=== PATIENT | male | born 2000 | race Caucasian/White ===

== ENCOUNTER 2018-07-10 04:50 | Emergency (ER) | payer SELFPAY ==
[2018-07-10 05:13] VITALS: BMI 19.3
[2018-07-10 05:20] LABS: BASO % 0.3 % (0-2.0); EOS % 0.2 % (0-4.5); HEMATOCRIT 42.5 % (35.4-49); HEMOGLOBIN 14.2 GM/dL (11.7-16.9); LYMPH % 16.6 % (8-40); MCH 31.6 pg (25.7-33.7); MCHC 33.3 g/dl (32.0-35.9); MEAN CELL VOLUME 94.7 fl (80-96); NEUT % 76.9 % (42.8-82.8); PLATELET COUNT 207 K/MM3 (134-434); RBC 4.49 M/mm3 (4.00-5.60); RDW 13.4 % (11.9-15.9); WHITE BLOOD COUNT 13.1 K/mm3 (4.0-10.0)
[2018-07-10] MEDS ORDERED: ONDANSETRON 4 MG/2 ML VIAL IVPUSH ONE (05:20)
[2018-07-10] MEDS ORDERED: morphine CARPU-JECT 4 MG/1 ML DISP.SYRIN IVPUSH ONE (05:20)
[2018-07-10] MEDS ORDERED: SODIUM CHLORIDE 1,000 ML IV STA ×2 (05:20→07:34)
[2018-07-10 05:45] VITALS: TEMP 97.6
[2018-07-10 05:49] LABS: ALBUMIN 4.6 g/dl (3.4-5.0); ALK PHOS 69 U/L (45-117); ANION GAP 13 MMOL/L (8-16); BILIRUBIN,TOTAL 0.6 mg/dL (0.2-1); BLOOD UREA NITROGEN 11 mg/dL (7-18); CALCIUM 8.8 mg/dL (8.5-10.1); CHLORIDE 108 mmol/L (98-107); CO2 22 mmol/L (21-32); GLUCOSE,RANDOM 112 mg/dL (74-106); POTASSIUM 3.9 mmol/L (3.5-5.1); SGOT/AST 12 U/L (15-37); SGPT/ALT 16 U/L (13-61); SODIUM 143 mmol/L (136-145); TOT PROT 7.2 g/dl (6.4-8.2)
--- NOTE | 2018-07-10 05:56 | PDOC ---
*Physical Exam - Vital Signs Last Vital Signs Temp Pulse Resp BP Pulse Ox 97.6 F 80 20 123/96 98 07/10/18 05:35 07/10/18 05:35 07/10/18 05:35 07/10/18 05:35 07/10/18 05:35 - Physical Exam Comments: 07/10/18 05:50 Afebrile, O2 sat normal, a milligram stable Initially arrived very tremulous in bed, complaining of severe pain. On my examination status post initial pain medications, more calm now with less tremors, still complaining of right flank pain Pupils are equal and reactive to light, extraocular movements are intact. Oropharynx clear, neck supple Lungs are clear, heart is regular Abdomen is soft and nondistended. Positive right CVA tenderness. No palpable hernias, exam is normal No evidence of toxidrome ED Treatment Course - LABORATORY CBC & Chemistry Diagram: 07/10/18 05:11 07/10/18 05:11 - ADDITIONAL ORDERS Additional order review: Laboratory Results 07/10/18 07/10/18 05:11 05:11 Sodium 143 Potassium 3.9 Chloride 108 H Carbon Dioxide 22 Anion Gap 13 BUN 11 Creatinine 1.0 Creat Clearance w eGFR > 60 Random Glucose 112 H Calcium 8.8 Total Bilirubin 0.6 AST 12 L ALT 16 Alkaline Phosphatase 69 Total Protein 7.2 Albumin 4.6 Lipase 82 - Medications Given in the ED: ED Medications Discontinued Medications Generic Name Dose Route Start Last Admin Trade Name Freq PRN Reason Stop Dose Admin Morphine Sulfate 4 mg 07/10/18 05:20 07/10/18 05:25 Morphine Injection - IVPUSH 07/10/18 05:21 4 mg ONCE ONE Administration Ondansetron HCl 4 mg 07/10/18 05:20 07/10/18 05:25 Zofran Injection IVPUSH 07/10/18 05:21 4 mg ONCE ONE Administration Medical Decision Making - Medical Decision Making 07/10/18 05:54 Healthy 17-year-old male presents with acute onset of right flank pain that awoke him from sleep, associated with dark urine. No history of kidney stones, no fevers or chills, no cardiopulmonary complaints. Labs, urinalysis CT of the abdomen and pelvis Pain and nausea control IV fluids Reassess,. ? tremors as response to pain v. reaction to marijuana. 07/10/18 06:53 3mm distal ureteral stone with mild hydro. awaiting UA, feels better after meds. expect d/c if no suspicion for superimposed infxn on UA. *DC/Admit/Observation/Transfer Diagnosis at time of Disposition: Right flank pain - Discharge Dispostion Condition at time of disposition: Fair - Referrals - Patient Instructions - Post Discharge Activity
--- NOTE | 2018-07-10 06:38 | PDOC ---
History of Present Illness - General Chief Complaint: Pain Stated Complaint: ABD PAIN Time Seen by Provider: 07/10/18 04:59 History Source: Patient Exam Limitations: No Limitations - History of Present Illness Initial Comments: 17 y/o M with no sig pmh presents with sudden onset of nonradiating R flank pain that started around 12 AM today along with noting dark urine. Denies ever having this type of pain before. +Nausea. Denies fever, sob, cp, vomiting, diarrhea, hematuria, dysuria, alcohol intake. Mentions only smoking marijuana, which he last smoked a few hours ago. Denies any abdominal surgeries. 07/10/18 06:24 Past History - Past Medical History Allergies/Adverse Reactions: Allergies Allergy/AdvReac Type Severity Reaction Status Date / Time No Known Allergies Allergy Verified 07/10/18 05:07 COPD: No Other medical history: Pt denies - Suicide/Smoking/Psychosocial Hx Smoking History: Never smoked Have you smoked in the past 12 months: No Information on smoking cessation initiated: No Hx Alcohol Use: No Drug/Substance Use Hx: Yes (Marijuana) Substance Use Type: None Abd/GI Specific PMHX - Complaint Specific PMHX Colitis: No Diverticulitis: No Gall Bladder Disease: No GERD: No Hepatitis: No Irritable Bowel Synd (IBS): No Pancreatitis: No GI Ulcer Disease: No Review of Systems - Review of Systems Comments:: See HPI 07/10/18 06:26 *Physical Exam - Vital Signs Last Vital Signs Temp Pulse Resp BP Pulse Ox 97.6 F 80 20 123/96 98 07/10/18 05:35 07/10/18 05:35 07/10/18 05:35 07/10/18 05:35 07/10/18 05:35 - Physical Exam General Appearance: Yes: Moderate Distress (Patient is shaking, unable to lay still) HEENT: positive: JOHN (Pupils slightly dilated) Respiratory/Chest: positive: Lungs Clear, Normal Breath Sounds. negative: Respiratory Distress, Accessory Muscle Use, Labored Respiration, Crackles, Rales , Rhonchi, Stridor, Wheezing Cardiovascular: positive: Regular Rhythm, Regular Rate Gastrointestinal/Abdominal: positive: Normal Bowel Sounds. negative: Protuberent, Distended, Guarding, Rebound, Tenderness, Mass Musculoskeletal: negative: CVA Tenderness Extremity: positive: Normal Inspection Neurologic: positive: Alert ED Treatment Course - LABORATORY CBC & Chemistry Diagram: 11/09/18 05:11 07/10/18 05:11 - ADDITIONAL ORDERS Additional order review: Laboratory Results 07/10/18 07/10/18 05:11 05:11 Sodium 143 Potassium 3.9 Chloride 108 H Carbon Dioxide 22 Anion Gap 13 BUN 11 Creatinine 1.0 Creat Clearance w eGFR > 60 Random Glucose 112 H Calcium 8.8 Total Bilirubin 0.6 AST 12 L ALT 16 Alkaline Phosphatase 69 Total Protein 7.2 Albumin 4.6 Lipase 82 07/10/18 05:11 RBC 4.49 MCV 94.7 MCHC 33.3 RDW 13.4 MPV 9.0 Neutrophils % 76.9 Lymphocytes % 16.6 Monocytes % 6.0 Eosinophils % 0.2 Basophils % 0.3 - RADIOLOGY Radiology Studies Ordered: Category Date Time Status ABDOMEN & PELVIS CT W/O CONTR [CT] Stat CT Scan 07/10/18 05:33 Ordered - Medications Given in the ED: ED Medications Discontinued Medications Generic Name Dose Route Start Last Admin Trade Name Freq PRN Reason Stop Dose Admin Sodium Chloride 1,000 mls @ 1,000 mls/hr 07/10/18 05:20 07/10/18 05:25 Normal Saline - IV 07/10/18 06:19 1,000 mls/hr ASDIR STA Administration Lorazepam 1 mg 07/10/18 05:55 07/10/18 06:12 Ativan Injection - IVPUSH 07/10/18 05:56 1 mg ONCE ONE Administration Morphine Sulfate 4 mg 07/10/18 05:20 07/10/18 05:25 Morphine Injection - IVPUSH 07/10/18 05:21 4 mg ONCE ONE Administration Ondansetron HCl 4 mg 07/10/18 05:20 07/10/18 05:25 Zofran Injection IVPUSH 07/10/18 05:21 4 mg ONCE ONE Administration Medical Decision Making - Medical Decision Making 17 y/o M otherwise healthy presents with sudden onset R flank pain. Symptoms could possibly be renal colic in nature? However, on PE, patient not really tender on exam, though appears uncomfortable and anxious on observation. Consider opiate withdrawal though patient mentions only using marijuana. Consider pancreatitis. Will give IVF, Zofran, Morphine, Ativan, get CBC, CMP, lipase, UA, urine tox and CT A/P 07/10/18 06:28 Abnormal Lab Results 07/10/18 07/10/18 05:11 05:11 WBC 13.1 H Absolute Neuts (auto) 10.1 H Chloride 108 H Random Glucose 112 H AST 12 L Labs showed mild leukocytosis of 13.1; rest of LFTs, lipase and kidney function normal CT A/P showed 3 mm distal R ureteral stone Patient given Toradol and now resting comfortably Patient pending UA Will sign out to AM MAYO 07/10/18 07:04 *DC/Admit/Observation/Transfer Diagnosis at time of Disposition: Urolithiasis - Referrals - Patient Instructions - Post Discharge Activity
[2018-07-10] MEDS ORDERED: KETOROLAC TROMETHAMINE 30 MG/1 ML VIAL IVPUSH ONE (06:41)
[2018-07-10] MEDS ORDERED: KETOROLAC TROMETHAMINE 30 MG/1 ML VIAL ONE ×2 (06:42→06:44)
[2018-07-10 08:55] LABS: URINE APPEARANCE SLCLOUDY; URINE BILIRUBIN NEGATIVE (<2.0 mg/dL); URINE COLOR YELLOW; URINE GLUCOSE (UA) NEGATIVE (NEGATIVE); URINE KETONE 1+ (NEGATIVE); URINE LEUK ESTERASE NEGATIVE (NEGATIVE); URINE NITRITE NEGATIVE (NEGATIVE); URINE PROTEIN 1+ (NEGATIVE); URINE UROBILINOGEN NEGATIVE mg/dL (0.2-1.0)
[2018-07-10 09:05] LABS: URINE MUCUS FEW
[2018-07-10 09:07] LABS: COCAINE, UR NEGATIVE ng/ml (CUTOFF=300); METHADONE, UR NEGATIVE ng/ml (CUTOFF=300); PHENCYCLIDINE,URINE NEGATIVE ng/ml (CUTOFF=25); URINE AMPHETAMINES NEGATIVE ng/ml (CUTOFF=500); URINE BARBITURATES NEGATIVE ng/ml (CUTOFF=200); URINE BENZODIAZEPINES NEGATIVE ng/ml (CUTOFF=200)
--- NOTE | 2018-07-10 09:08 | PDOC ---
*Physical Exam - Vital Signs Last Vital Signs Temp Pulse Resp BP Pulse Ox 97.6 F 80 20 123/96 98 07/10/18 05:35 07/10/18 05:35 07/10/18 05:35 07/10/18 05:35 07/10/18 05:35 - Physical Exam Comments: 07/10/18 09:06 This patient was signed out to me by Dr. Campbell at 7am 07/10/2018 ED Treatment Course - LABORATORY CBC & Chemistry Diagram: 07/10/18 05:11 07/10/18 05:11 - ADDITIONAL ORDERS Additional order review: Laboratory Results 07/10/18 07/10/18 07/10/18 08:41 05:11 05:11 Sodium 143 Potassium 3.9 Chloride 108 H Carbon Dioxide 22 Anion Gap 13 BUN 11 Creatinine 1.0 Creat Clearance w eGFR > 60 Random Glucose 112 H Calcium 8.8 Total Bilirubin 0.6 AST 12 L ALT 16 Alkaline Phosphatase 69 Total Protein 7.2 Albumin 4.6 Lipase 82 Urine Color Yellow Urine Appearance Slcloudy Urine pH 6.0 Ur Specific [place] 1.015 Urine Protein 1+ H Urine Glucose (UA) Negative Urine Ketones 1+ H Urine Blood 3+ H Urine Nitrite Negative Urine Bilirubin Negative Urine Urobilinogen Negative Ur Leukocyte Esterase Negative 07/10/18 05:11 RBC 4.49 MCV 94.7 MCHC 33.3 RDW 13.4 MPV 9.0 Neutrophils % 76.9 Lymphocytes % 16.6 Monocytes % 6.0 Eosinophils % 0.2 Basophils % 0.3 - Medications Given in the ED: ED Medications Discontinued Medications Generic Name Dose Route Start Last Admin Trade Name Sweetie PRN Reason Stop Dose Admin Sodium Chloride 1,000 mls @ 1,000 mls/hr 07/10/18 05:20 07/10/18 05:25 Normal Saline - IV 07/10/18 06:19 1,000 mls/hr ASDIR STA Administration Ketorolac Tromethamine 30 mg 07/10/18 06:41 07/10/18 07:01 Toradol Injection - IVPUSH 07/10/18 06:42 30 mg ONCE ONE Administration Lorazepam 1 mg 07/10/18 05:55 07/10/18 06:12 Ativan Injection - IVPUSH 07/10/18 05:56 1 mg ONCE ONE Administration Morphine Sulfate 4 mg 07/10/18 05:20 07/10/18 05:25 Morphine Injection - IVPUSH 07/10/18 05:21 4 mg ONCE ONE Administration Ondansetron HCl 4 mg 07/10/18 05:20 07/10/18 05:25 Zofran Injection IVPUSH 07/10/18 05:21 4 mg ONCE ONE Administration Medical Decision Making - Medical Decision Making 07/10/18 09:07 17 yo M with newly diagnosed right ureteral stone. This patient was signed out to me by Dr. Campbell. On two attempts, the patient would not give urine. Approximately at 8:45 am, he was able to give a urine sample. Currently sleeping in the stretcher without pain symptoms. Patients UA showed no infection presence. Pt was given follow up referrals with urology and PMD. Given strict return precautions. The patient understood the plan and agreed to it. All labs and imaging was reviewed with the patient as well as the course of the stay. Dispo: DC *DC/Admit/Observation/Transfer Diagnosis at time of Disposition: Urolithiasis Qualifiers: Urinary calculus location: other lower urinary tract location Qualified Code(s) : N21.8 - Other lower urinary tract calculus - Discharge Dispostion Disposition: HOME Condition at time of disposition: Stable Decision to Admit order: No - Prescriptions Prescriptions: Tamsulosin HCl [Flomax] 0.4 mg PO HS #7 capsule - Referrals Referrals: Saad Silverman MD [Staff Physician] - [facility] [place] [place] [Provider Group] - Patient Instructions Additional Instructions: You have been seen in the emergency department for the evaluation of your right sided pain. Your CT imaging shows that you have a kidney stone on the right side. Your urine did not show active infection within the urine. Please follow up with your primary medical doctor within 24-48 hours. In addition, please follow up with the urologist that was referred to you within 24-48 hours. Maintain hydration and use tylenol for pain control as directed on the label. If you experience fever/chills, worsening pain, pain with urination, nausea/ vomiting, and new severe pain. Thank you. - Post Discharge Activity
[2018-07-10 09:37] LABS: OPIATES, URI POSITIVE ng/ml (CUTOFF=300)
--- NOTE | 2018-07-10 09:42 | PDOC ---
*Physical Exam - Vital Signs Last Vital Signs Temp Pulse Resp BP Pulse Ox 97.6 F 80 20 123/96 98 07/10/18 05:35 07/10/18 05:35 07/10/18 05:35 07/10/18 05:35 07/10/18 05:35 ED Treatment Course - LABORATORY CBC & Chemistry Diagram: 07/10/18 05:11 07/10/18 05:11 - ADDITIONAL ORDERS Additional order review: Laboratory Results 07/10/18 07/10/18 07/10/18 08:41 08:41 05:11 Sodium Potassium Chloride Carbon Dioxide Anion Gap BUN Creatinine Creat Clearance w eGFR Random Glucose Calcium Total Bilirubin AST ALT Alkaline Phosphatase Total Protein Albumin Lipase 82 Urine Color Yellow Urine Appearance Slcloudy Urine pH 6.0 Ur Specific [place] 1.015 Urine Protein 1+ H Urine Glucose (UA) Negative Urine Ketones 1+ H Urine Blood 3+ H Urine Nitrite Negative Urine Bilirubin Negative Urine Urobilinogen Negative Ur Leukocyte Esterase Negative Urine WBC (Auto) 1 Urine RBC (Auto) 43 Urine Mucus Few Opiates Screen Positive A* Methadone Screen Negative Barbiturate Screen Negative Phencyclidine Screen Negative Ur Amphetamines Screen Negative MDMA (Ecstasy) Screen Negative Benzodiazepines Screen Negative Cocaine Screen Negative U Marijuana (THC) Screen Positive A* 07/10/18 05:11 Sodium 143 Potassium 3.9 Chloride 108 H Carbon Dioxide 22 Anion Gap 13 BUN 11 Creatinine 1.0 Creat Clearance w eGFR > 60 Random Glucose 112 H Calcium 8.8 Total Bilirubin 0.6 AST 12 L ALT 16 Alkaline Phosphatase 69 Total Protein 7.2 Albumin 4.6 Lipase Urine Color Urine Appearance Urine pH Ur Specific [place] Urine Protein Urine Glucose (UA) Urine Ketones Urine Blood Urine Nitrite Urine Bilirubin Urine Urobilinogen Ur Leukocyte Esterase Urine WBC (Auto) Urine RBC (Auto) Urine Mucus Opiates Screen Methadone Screen Barbiturate Screen Phencyclidine Screen Ur Amphetamines Screen MDMA (Ecstasy) Screen Benzodiazepines Screen Cocaine Screen U Marijuana (THC) Screen 07/10/18 05:11 RBC 4.49 MCV 94.7 MCHC 33.3 RDW 13.4 MPV 9.0 Neutrophils % 76.9 Lymphocytes % 16.6 Monocytes % 6.0 Eosinophils % 0.2 Basophils % 0.3 - Medications Given in the ED: ED Medications Discontinued Medications Generic Name Dose Route Start Last Admin Trade Name Freq PRN Reason Stop Dose Admin Sodium Chloride 1,000 mls @ 1,000 mls/hr 07/10/18 05:20 07/10/18 05:25 Normal Saline - IV 07/10/18 06:19 1,000 mls/hr ASDIR STA Administration Sodium Chloride 1,000 mls @ 1,000 mls/hr 07/10/18 07:34 07/10/18 08:00 Normal Saline - IV 07/10/18 08:33 1,000 mls/hr ASDIR STA Administration Ketorolac Tromethamine 30 mg 07/10/18 06:41 07/10/18 07:01 Toradol Injection - IVPUSH 07/10/18 06:42 30 mg ONCE ONE Administration Lorazepam 1 mg 07/10/18 05:55 07/10/18 06:12 Ativan Injection - IVPUSH 07/10/18 05:56 1 mg ONCE ONE Administration Morphine Sulfate 4 mg 07/10/18 05:20 07/10/18 05:25 Morphine Injection - IVPUSH 07/10/18 05:21 4 mg ONCE ONE Administration Ondansetron HCl 4 mg 07/10/18 05:20 07/10/18 05:25 Zofran Injection IVPUSH 07/10/18 05:21 4 mg ONCE ONE Administration Medical Decision Making - Medical Decision Making 07/10/18 09:42 Patient here with hematuria. Patient on CT showed a right ureteral 3 mm stone. Patient's UA negative for UTI. Patient be given a referral to urologist. *DC/Admit/Observation/Transfer Diagnosis at time of Disposition: Urolithiasis Qualifiers: Urinary calculus location: other lower urinary tract location Qualified Code(s) : N21.8 - Other lower urinary tract calculus - Discharge Dispostion Disposition: HOME - Referrals Referrals: [facility] [place] [facility] [place] [Provider Group] Saad Silverman MD [Staff Physician] - - Patient Instructions Additional Instructions: You have been seen in the emergency department for the evaluation of your right sided pain. Your CT imaging shows that you have a kidney stone on the right side. Your urine did not show active infection within the urine. Please follow up with your primary medical doctor within 24-48 hours. In addition, please follow up with the urologist that was referred to you within 24-48 hours. Maintain hydration and use tylenol for pain control as directed on the label. If you experience fever/chills, worsening pain, pain with urination, and new severe pain. Thank you. - Post Discharge Activity
[2018-07-10 10:45] VITALS: BP 139/89; PULSE 88
== END 2018-07-10 10:46 | disposition home or self-care (01) ==
LOC: JER 04:50
PROC: 3E0333Z Introduction of Anti-inflammatory into Peripheral Vein, Percutaneous Approach (ICD-10-PCS; principal; 2018-07-10)
PROC: 3E033NZ Introduction of Analgesics, Hypnotics, Sedatives into Peripheral Vein, Percutaneous Approach (ICD-10-PCS; 2018-07-10)
PROC: 3E0337Z Introduction of Electrolytic and Water Balance Substance into Peripheral Vein, Percutaneous Approach (ICD-10-PCS; 2018-07-10)
DX: N20.9 Urinary calculus, unspecified (principal)
CPT/HCPCS: 36415; 74176-TC; 80053; 80307; 81003; 81015; 83690; 85025; 99284-25; J7030

== ENCOUNTER 2019-10-08 15:40 | Emergency (ER) | payer BC ==
[2019-10-08 15:54] VITALS: TEMP 97.2; BMI 19.5
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
--- NOTE | 2019-10-08 18:06 | CON.PSY ---
Psychiatry Consult Chief Complaint: i an angry, i say things. patient seen with [facility] , lives at Home with 5 Brothers and other family members, apparantly amde statements that he wants to kill every one. No specific plans, does not own a GUN. Police were called and they brought him here. Symptoms: reports: Irritability - Previous Psychiatric Treatment Outpatient: None Inpatient: None - Previous Substance Abuse Treatment Outpatient: None Inpatient: None - Allergies Allergies: Allergies Allergy/AdvReac Type Severity Reaction Status Date / Time No Known Allergies Allergy Verified 10/08/19 15:54 - Current Living Status Usual Living Arrangement: With Parent - Current Mental Status Evaluation Appearance: Well Groomed Attitude: Uncooperative - Affect Affect: Constrictive Appropriateness: Appropriate to Content - Mood Mood: Angry - Speech/Language Expressive: Coherent - Psychomotor Activity Psychomotor Activity: Normal - Thought Process Thought Process: Intact - Thought Content Hallucinations: Absent Delusions: Absent - Self Perception Self Perception: No Impairment - Cognition Attention: Alert Orientation: Time Memory, Immediate Recall: Intact Memory, Short Term: 3/3 Memory, Remote with Promptin/3 - Concentration Serial Sevens Intact: No Simple Calculations Intact: Yes - Abstraction Proverb Interpretation: Intact Judgement: Minimally Impaired - Insight Insight: Intact - Impulse Control Impulse Control: Minimally Impaired - Suicidal Ideation Suicidal Ideation: No - Homicidal Ideation Homicidal Ideation: No (Patient has no Specific plans or no previous Psych) Assessment/Plan 1) Patient is cleraed to go HOme. has no specific threats orplans to kill himself or Others. @) suggested Psychotherapy as a follow up. 2) discharge Home.
[2019-10-08 18:49] LABS: BASO % 0.2 % (0-2.0); EOS % 0.1 % (0-4.5); HEMATOCRIT 47.5 % (35.4-49); LYMPH % 8.5 % (8-40); MCH 32.1 pg (25.7-33.7); MCHC 33.6 g/dl (32.0-35.9); MEAN CELL VOLUME 95.4 fl (80-96); MEAN PLT VOLUME 10.1 fl (7.5-11.1); MONO % 5.5 % (3.8-10.2); NEUT % 85.7 % (42.8-82.8); PLATELET COUNT 217 K/MM3 (134-434); RBC 4.98 M/mm3 (4.00-5.60); RDW 13.4 % (11.9-15.9); WHITE BLOOD COUNT 17.3 K/mm3 (4.0-10.0)
[2019-10-08 19:07] LABS: ALBUMIN 5.1 g/dl (3.4-5.0); BILIRUBIN,TOTAL 0.7 mg/dL (0.2-1); BLOOD UREA NITROGEN 11.7 mg/dL (7-18); CALCIUM 9.5 mg/dL (8.5-10.1); CREATININE 1.1 mg/dL (0.55-1.3); POTASSIUM 3.6 mmol/L (3.5-5.1); TOT PROT 8.3 g/dl (6.4-8.2)
[2019-10-08 20:09] LABS: URINE APPEARANCE CLEAR; URINE BILIRUBIN NEGATIVE (NEGATIVE); URINE COLOR YELLOW; URINE GLUCOSE (UA) NEGATIVE (NEGATIVE); URINE KETONE 1+ (NEGATIVE); URINE LEUK ESTERASE NEGATIVE (NEGATIVE); URINE NITRITE NEGATIVE (NEGATIVE); URINE PROTEIN NEGATIVE (NEGATIVE); URINE UROBILINOGEN 0.2 mg/dL (0.2-1.0)
[2019-10-08 20:13] VITALS: BP 115/68; PULSE 71
[2019-10-08 20:24] LABS: COCAINE, UR NEGATIVE ng/ml (CUTOFF=300); METHADONE, UR NEGATIVE ng/ml (CUTOFF=300); OPIATES, URI NEGATIVE ng/ml (CUTOFF=300); PHENCYCLIDINE,URINE NEGATIVE ng/ml (CUTOFF=25); URINE AMPHETAMINES NEGATIVE ng/ml (CUTOFF=500); URINE BARBITURATES NEGATIVE ng/ml (CUTOFF=200); URINE BENZODIAZEPINES NEGATIVE ng/ml (CUTOFF=200)
== END 2019-10-08 20:13 | disposition home or self-care (01) ==
LOC: JER 15:40
DX: F39 Unspecified mood [affective] disorder (principal); D72.829 Elevated white blood cell count, unspecified; F17.210 Nicotine dependence, cigarettes, uncomplicated
CPT/HCPCS: 36415; 80053; 80307; 81003; 85025; 99282-25

== ENCOUNTER 2022-02-21 16:08 | Emergency (ER) | payer BC, OTHER ==
[2022-02-21] MEDS ORDERED: DIPHTH,PERTUSS(ACELL),TET 0.5 ML DISP.SYRIN IM ONE ×2 (16:41→16:44)
[2022-02-21 16:53] VITALS: BP 128/87; PULSE 80; TEMP 99.5; BMI 20.2
== END 2022-02-21 16:56 | disposition home or self-care (01) ==
LOC: FER 16:08
PROC: 3E0234Z Introduction of Serum, Toxoid and Vaccine into Muscle, Percutaneous Approach (ICD-10-PCS; principal; 2022-02-21)
DX: S01.81XA Laceration without foreign body of other part of head, initial encounter (principal); W20.8XXA Other cause of strike by thrown, projected or falling object, initial encounter
CPT/HCPCS: 90715; 99285-25